=== PATIENT | female | born 1970 | race Caucasian/White ===

== ENCOUNTER 2019-01-01 14:56 | Emergency (ER) | payer OTHER ==
[~2019-01-01] VITALS: Ht 149.9 cm; Wt 61.7 kg
== END 2019-01-01 18:38 | disposition home or self-care (01) ==
LOC: ER 14:56
DX: M60.88 Other myositis, other site (principal); M54.31 Sciatica, right side

== ENCOUNTER 2022-05-22 18:31 | Emergency (ER) | payer OTHER ==
[~2022-05-22] VITALS: Ht 157.5 cm; Wt 63.5 kg
[2022-05-22] MEDS ORDERED: NEURONTIN300 MG PO (19:26)
[2022-05-22] MEDS ORDERED: ZESTRIL20 MG PO (19:26)
== END 2022-05-22 22:10 | disposition home or self-care (01) ==
LOC: ER 18:31
DX: T17.208A Unspecified foreign body in pharynx causing other injury, initial encounter (principal); X58.XXXA Exposure to other specified factors, initial encounter